=== PATIENT | female | born 1960 | race Caucasian/White ===

== ENCOUNTER 2016-09-24 11:49 | Emergency (ER) | payer BC, OTHER ==
[2016-09-24] MEDS ORDERED: Penicillin G Benzathine/Procaine 900-300 1.2 Millunits/2 ML Syringe IM ONE (12:50)
--- NOTE | 2016-09-24 14:35 | ER ---
Date of Service: 09/24/2016 REASON FOR VISIT: Sore throat. HISTORY: This is a 56-year-old white female who presents ambulatory to the emergency room with the onset yesterday of a sore throat, mainly on the left side. She had trouble sleeping because of that. Today, the sore throat is worse and more diffuse. She has had bilateral ear pains, some bilateral rib and chest irritation, but no chest pain. No shortness of breath. She has had chills, but no fever. No head congestion, no nausea or vomiting. She did take some home remedies last night. MEDICATIONS: Reviewed and list on the electronic health record. ALLERGIES: Reviewed and list on the electronic health record. OBJECTIVE: General: She is alert. Vital Signs: Stable. See nursing notes. HEENT: TMs negative. Posterior pharynx is red. Neck: Supple with anterior cervical adenopathy. It is tender. Heart: Regular rate and rhythm. Lungs: Clear to auscultation. LABORATORY DATA: Rapid strep is positive. ASSESSMENT: Streptococcal pharyngitis. PLAN: Management options were discussed. The patient prefers the injectable penicillin. She is treated with Bicillin CR 1.2 million units IM in a single dose. I advised fluids and rest. May use Tylenol for fever and call or return if problems or concerns. FM: 09/24/2016 13:22:54 MODL: 09/24/2016 14:28:41 /[id number]
== END 2016-09-24 13:17 | disposition home or self-care (01) ==
LOC: VM.ED 11:49
DX: J02.0 Streptococcal pharyngitis (principal)
CPT/HCPCS: 87880; 96372; 99283; J0558

== ENCOUNTER 2025-05-31 12:37 | Emergency (ER) | payer MEDICARE, OTHER ==
[2025-05-31 13:00] LABS: BASOPHILS ABSOLUTE AUTO 0.1 x10^3/uL (0.0-0.2); BASOPHILS PERCENT AUTO 0.7 % (0.2-1.2); EOSINOPHILS ABSOLUTE AUTO 0.1 x10^3/uL (0.0-0.5); EOSINOPHILS PERCENT AUTO 1.4 % (0.0-4.0); IMMATURE GRAN ABSOLUTE AUTO 0.02 x10^3/uL (0.00-0.07); IMMATURE GRAN PERCENT AUTO 0.30 % (0.00-0.43); LYMPHOCYTES ABSOLUTE AUTO 2.7 x10^3/uL (1.0-4.8); LYMPHOCYTES PERCENT AUTO 38.0 % (25.0-50.0); MONOCYTES ABSOLUTE AUTO 0.6 x10^3/uL (0.0-0.8); MONOCYTES PERCENT AUTO 8.0 % (2.0-11.0); NEUTROPHILS ABSOLUTE AUTO 3.7 x10^3/uL (1.8-7.7); NEUTROPHILS PERCENT AUTO 51.6 % (50.0-80.0); PLATELET COUNT,PLT 262 x10^3/uL (130-400); RED BLOOD CELL COUNT 4.52 x10^6/uL (4.00-5.50); WHITE BLOOD CELL COUNT,WBC 7.1 x10^3/uL (4.0-10.0)
[2025-05-31 13:15] LABS: A/G RATIO 1.00; ALANINE AMINOTRANSFERASE,ALT 19 U/L (14-59); ASPARTATE AMNIOTRANSFERASE,AST 13 U/L (15-37); BILIRUBIN TOTAL 0.4 mg/dL (0.2-1.0); BLOOD UREA NITROGEN,BUN 9 mg/dL (7-18); CARBON DIOXIDE,CO2 30 mmol/L (21-32); CHLORIDE,CL 103 mmol/L (98-107); CREATININE 0.7 mg/dL (0.55-1.02); GLUCOSE RANDOM 114 mg/dL (70-99); POTASSIUM,K 4.0 mmol/L (3.5-5.1); PROTEIN TOTAL,TP 7.0 g/dL (6.4-8.2); SODIUM,NA 142 mmol/L (136-145)
[2025-05-31 13:16] LABS: ESTIMATED GFR 95 mL/min (>=60)
[2025-05-31] MEDS ORDERED: Ketorolac 30 MG/ML SDV IVPUSH ONE (13:35)
[2025-05-31] MEDS: Ketorolac 15 MG/ML SDV IVPUSH ONE (13:51)
[2025-05-31 15:28] VITALS: BP 145/71; PULSE 65
== END 2025-05-31 14:16 | disposition home or self-care (01) ==
LOC: VM.ED 12:37
DX: M94.0 Chondrocostal junction syndrome [Tietze] (principal); I10 Essential (primary) hypertension; J45.909 Unspecified asthma, uncomplicated; Z79.899 Other long term (current) drug therapy; Z88.5 Allergy status to narcotic agent; Z91.048 Other nonmedicinal substance allergy status
CPT/HCPCS: 71045; 80053; 84484; 85025; 93005; 93010; 96374; 99284; 99285-25; J1885